=== PATIENT | female | born 1975 | race African-American/Black ===

== ENCOUNTER 2024-02-15 06:21 | Inpatient (IN) | payer OTHER ==
[~2024-02-15] VITALS: Ht 162.6 cm; Wt 88.1 kg
[2024-02-15] MEDS ORDERED: SKIN ADHESIVE 0.7 GM EA TOP ONE ×2 (07:34→11:16)
[2024-02-15] MEDS ORDERED: VASOPRESSIN 20 UNIT/ML 1ML ONE (07:34)
[2024-02-15 07:42] LABS: BASOPHILS % 1.2 % (0.0-2.0); EOSINOPHILS % 7.4 % (0.0-5.0); HEMOGLOBIN. 10.8 g/dL (12.0-16.0); LYMPHOCYTES % 17.8 % (20.0-50.0); MEAN CORPUSCULAR HEMOGLOBIN 27.6 pg (28.0-32.0); MEAN CORPUSCULAR HGB CONC 33.9 g/dL (31.0-37.0); MEAN CORPUSCULAR VOLUME 81.4 fL (81.0-99.0); MEAN PLATELET VOLUME 7.3 fl (7.4-10.4); MONOCYTES % 8.7 % (2.0-8.0); NEUTROPHILS % 64.9 % (40.0-76.0); PLATELET 371 x1000/uL (130-400); RED BLOOD CELL COUNT 3.93 mill/uL (4.2-5.4); RED CELL DISTRIBUTION WIDTH 12.5 % (11.6-14.6); WHITE BLOOD COUNT 5.9 x1000/uL (4.5-11.0)
[2024-02-15 07:44] LABS: CLARITY URINE CLEAR (CLEAR); COLOR URINE YELLOW (YELLOW); GLUCOSE URINE NEGATIVE (NEGATIVE); KETONES URINE NEGATIVE (NEGATIVE); LEUKOCYTE ESTERASE URINE NEGATIVE (NEGATIVE); NITRITE URINE NEGATIVE (NEGATIVE); OCCULT BLOOD URINE NEGATIVE (NEGATIVE); PROTEIN URINE NEGATIVE (NEGATIVE); SPECIFIC GRAVITY URINE 1.008 (1.005-1.030); UROBILINOGEN URINE 0.2 E.U./dL (0.2-1.0)
[2024-02-15 07:52] LABS: UCG SCREEN NEGATIVE
[2024-02-15 07:53] LABS: UCG KIT EXPIRATION DATE 10/25/2025
[2024-02-15 07:57] LABS: PARTIAL THROMBOPLASTIN TIME 26.4 sec (23.4-31.0)
[2024-02-15 08:00] LABS: CHLORIDE 102 mEq/L (98-107); POTASSIUM 3.1 mEq/L (3.5-5.1); SODIUM 137 mEq/L (136-145)
[2024-02-15 08:01] LABS: CARBON DIOXIDE 32 mEq/L (21-32)
[2024-02-15 08:02] LABS: CALCIUM 9.2 mg/dL (8.7-10.4)
[2024-02-15 08:06] LABS: CREATININE 0.8 mg/dL (0.6-1.0); GLUCOSE 95 mg/dL (70-105); UREA NITROGEN BLOOD 10 mg/dL (9-23)
[2024-02-15] MEDS ORDERED: FENTANYL CITRATE/PF 50MCG/ML 2ML VIAL ONE (08:16)
[2024-02-15] MEDS ORDERED: MIDAZOLAM HCL 2 MG/2 ML VIAL ONE (08:16)
[2024-02-15] MEDS ORDERED: PROPOFOL 200MG/20ML VIAL IV ONE (08:16)
[2024-02-15] MEDS ORDERED: ROCURONIUM BROMIDE 10MG/ML VIAL 5ML IV ONE (08:16)
[2024-02-15] MEDS ORDERED: ASPI-1497 PO (08:18)
[2024-02-15] MEDS ORDERED: LOSA1TAB40 PO (08:18)
[2024-02-15] MEDS ORDERED: PROP10TA10 PO (08:18)
[2024-02-15] MEDS ORDERED: MULT-1146 PO (08:18)
[2024-02-15] MEDS: LACTATED RINGERS 1,000 ML IV SCH (08:25)
[2024-02-15] MEDS: KCL 10MEQ/50ML PREMIX 50 ML IV NR (09:02)
[2024-02-15] MEDS ORDERED: HYDROMORPHONE HCL/PF 2MG/ML INJ ONE (10:13)
[2024-02-15] MEDS ORDERED: MEPERIDINE HCL/PF 25MG/ML CPJ IV PRN (10:45)
[2024-02-15] MEDS ORDERED: ONDANSETRON HCL 4MG/2ML INJ IV PRN ×2 (10:45→11:45)
[2024-02-15] MEDS ORDERED: HYDROMORPHONE HCL/PF 2MG/ML INJ IV PRN (10:45)
[2024-02-15] MEDS ORDERED: NEOSTIGMINE METHYLSULFATE 1MG/ML 10 ML VIAL ONE (10:46)
[2024-02-15] MEDS ORDERED: GLYCOPYRROLATE 0.2 MG/ML 2ML VIAL ONE (10:46)
[2024-02-15] MEDS: FENTANYL CITRATE/PF 50MCG/ML 2ML VIAL IV PRN (12:22)
[2024-02-15] MEDS: DEXT 5%/0.45% NACL KCL 20MEQ/L 1,000 ML IV SCH (12:31)
[2024-02-15] MEDS: ACETAMINOPHEN 1000MG/100ML 100 ML IV NR (13:15)
[2024-02-15 14:30] VITALS: BP 112/73; PULSE 89; RESP 18; TEMP 97.8
[2024-02-15] MEDS: MORPHINE SULFATE 2 MG/ML INJ (NOT FOR IM USE) IV PRN (17:10)
[2024-02-15] MEDS ORDERED: NALOXONE HCL 0.4MG/ML VIAL IV PRN (17:15)
[2024-02-15] MEDS ORDERED: CEFAZOLIN 1000MG PREMIX 50 ML IV SCH (18:00)
[2024-02-15] MEDS: CEFAZOLIN 1000MG PREMIX 50 ML IV SCH (18:50)
[2024-02-15 20:00] VITALS: BP 117/81; PULSE 76; RESP 18; TEMP 98
[2024-02-15] MEDS: FAMOTIDINE 20MG/2ML VIAL IV SCH (21:21)
[2024-02-16] VITALS: BP 130/80; PULSE 79; RESP 20; TEMP 97.6
[2024-02-16 04:00] VITALS: BP 116/77; PULSE 81; RESP 17; TEMP 98.8
[2024-02-16 08:00] VITALS: BP 125/84; PULSE 87; RESP 19; TEMP 98.1
[2024-02-16 12:00] VITALS: BP 126/79; PULSE 76; RESP 19; TEMP 98.4
[2024-02-16 16:00] VITALS: BP 125/76; PULSE 82; RESP 18; TEMP 98.8
[2024-02-16 20:00] VITALS: BP 114/62; PULSE 85; RESP 16; TEMP 98.1
[2024-02-16] MEDS ORDERED: HYDROXYZINE 25MG TABLET PO PRN (23:30)
[2024-02-17] VITALS: BP 93/46; PULSE 79; RESP 18; TEMP 97.3
[2024-02-17 04:00] VITALS: BP 105/54; PULSE 80; RESP 20; TEMP 97.1
[2024-02-17 08:00] VITALS: BP 120/70; PULSE 84; RESP 20; TEMP 97.9
[2024-02-17] MEDS: PROPRANOLOL HCL 10MG TABLET PO SCH (08:26)
[2024-02-17] MEDS: LOSARTAN 25 MG TABLET PO SCH (08:26)
[2024-02-17 12:00] VITALS: BP 98/59; PULSE 74; RESP 19; TEMP 98.8
[2024-02-17 16:00] VITALS: BP 98/64; PULSE 76; RESP 18; TEMP 96.8
[2024-02-17 16:39] LABS: BASOPHILS % 0.9 % (0.0-2.0); HEMATOCRIT. 22.1 % (36.0-48.0); HEMOGLOBIN. 7.5 g/dL (12.0-16.0); MEAN CORPUSCULAR HEMOGLOBIN 28.1 pg (28.0-32.0); MEAN CORPUSCULAR HGB CONC 34.1 g/dL (31.0-37.0); MEAN CORPUSCULAR VOLUME 82.6 fL (81.0-99.0); MEAN PLATELET VOLUME 7.9 fl (7.4-10.4); MONOCYTES % 8.4 % (2.0-8.0); NEUTROPHILS % 77.7 % (40.0-76.0); PLATELET 272 x1000/uL (130-400); RED BLOOD CELL COUNT 2.67 mill/uL (4.2-5.4); RED CELL DISTRIBUTION WIDTH 12.1 % (11.6-14.6)
[2024-02-17] MEDS: TRAMADOL 50MG TABLET PO PRN (18:30)
[2024-02-17 20:00] VITALS: BP 109/62; PULSE 79; RESP 19; TEMP 97.7
[2024-02-18] VITALS: BP 108/63; PULSE 79; RESP 18; TEMP 98.6
[2024-02-18 04:00] VITALS: BP 148/89; PULSE 86; RESP 18; TEMP 97.7
[2024-02-18 08:00] VITALS: BP 129/81; PULSE 84; RESP 20; TEMP 97.7
[2024-02-18 12:00] VITALS: BP 144/82; PULSE 66; RESP 20; TEMP 97.5
[2024-02-18] MEDS: DOCUSATE SODIUM 100MG CAPSULE PO SCH (14:45)
[2024-02-18 16:00] VITALS: BP 148/79; PULSE 75; RESP 20; TEMP 97.9
[2024-02-18 20:00] VITALS: BP 137/79; PULSE 80; RESP 19; TEMP 98.2
[2024-02-18] MEDS ORDERED: ACETAMINOPHEN WITH CODEINE 300/30MG TABLET PO PRN (23:45)
[2024-02-18] MEDS: ACETAMINOPHEN 650MG SUPP PR PRN (23:59)
[2024-02-19] VITALS: BP 140/84; PULSE 73; RESP 19; TEMP 98.3
[2024-02-19] MEDS: IBUPROFEN 800MG TABLET PO SCH
[2024-02-19 04:00] VITALS: BP 134/85; PULSE 70; RESP 19; TEMP 98.3
[2024-02-19 08:00] VITALS: BP 118/73; PULSE 78; RESP 20; TEMP 98.1
[2024-02-19 12:00] VITALS: BP 139/82; PULSE 64; RESP 20; TEMP 98.1
[2024-02-19] MEDS ORDERED: IBUP-2030 PO (14:12)
[2024-02-19] MEDS ORDERED: T3 PO (14:12)
[2024-02-19 14:18] VITALS: BP 139/84; PULSE 69; TEMP 98.1; O2SAT 95
[2024-02-19 14:46] VITALS: BP 139/84; PULSE 69; RESP 20
== END 2024-02-19 14:55 | disposition home or self-care (01) | DRG 743 ==
LOC: OR 06:21 → 6EST 14:23
PROVIDERS: ADMIT Obstetrics & Gynecology; ATTEND Obstetrics & Gynecology
PROC: 0UT90ZZ Resection of Uterus, Open Approach (ICD-10-PCS; principal; 2024-02-15)
PROC: 0UT20ZZ Resection of Bilateral Ovaries, Open Approach (ICD-10-PCS; 2024-02-15)
PROC: 0UB70ZZ Excision of Bilateral Fallopian Tubes, Open Approach (ICD-10-PCS; 2024-02-15)
DX: D25.9 Leiomyoma of uterus, unspecified (principal)
CPT/HCPCS: 36415; 80048; 81003; 81025; 85025; 86850; 86900; 86920; 88305; 93005; 97116; 97162; 97530; J0690; J1170; J2250; J2270; J2704; J2710; J3010; J3480; J3490; J0131